=== PATIENT | male | born 1955 | race Caucasian/White ===

== ENCOUNTER 2019-11-28 12:30 | Emergency (ER) | payer OTHER ==
[2019-11-28] MEDS ORDERED: Bacitracin Oint 1 GM U/D Packet TOP ONE (13:21)
[2019-11-28] MEDS ORDERED: Diphtheria,Pertussis(Acell),Tetanus Vaccine 0.5 ML SDV IM ONE (13:21)
--- NOTE | 2019-11-28 13:28 | EDM.PDOC ---
ED HPI GENERAL MEDICAL PROBLEM - General Chief Complaint: Upper Extremity Injury/Pain Stated Complaint: LACERATION RIGHT HAND BASE OF THUMB Time Seen by Provider: 11/28/19 13:15 Source of Information: Reports: Patient History Limitations: Reports: No Limitations - History of Present Illness INITIAL COMMENTS - FREE TEXT/NARRATIVE: 64-year-old male with a laceration to his right hand. The wench handle on his pontoon snapped back and caught his hand and cut the hand between the thumb and first finger on the palmar side. No other injury. Onset: Sudden Duration: Hour(s): (1 hour ago) Location: Reports: Upper Extremity, Right Associated Symptoms: Reports: No Other Symptoms Right Hand Pain Score (Numeric/FACES): 0 - Related Data Allergies Allergy/AdvReac Type Severity Reaction Status Date / Time No Known Allergies Allergy Verified 11/28/19 13:10 Home Meds: Home Meds NK [No Known Home Meds] 11/28/19 [History] Past Medical History - Past Surgical History GI Surgical History: Reports: Hernia, Inguinal Social & Family History - Tobacco Use Smoking Status *Q: Never Smoker - Caffeine Use Caffeine Use: Reports: Coffee - Recreational Drug Use Recreational Drug Use: No Review of Systems - Review of Systems Review Of Systems: See Below Respiratory: Reports: No Symptoms. Denies: Shortness of Breath Cardiovascular: Reports: No Symptoms Skin: Reports: Other (Laceration of the right hand) Neurological: Denies: Paresthesia (No numbness of the digits of the right hand) ED EXAM, GENERAL - Physical Exam Exam: See Below Exam Limited By: No Limitations General Appearance: Alert, No Apparent Distress Head: Atraumatic Respiratory/Chest: No Respiratory Distress Cardiovascular: Regular Rate, Rhythm Extremities: Other (Exam is otherwise limited to the right hand. The patient has a 5 cm angled flap laceration through the thenar area of the right palm into the webspace between the thumb and second digit. It is fairly deep into the subcutaneous tissues, but no major vessels or nerves are involved. He has full range of motion and normal sensation) Course - Vital Signs Last Recorded V/S: Last Vital Signs Temp 97.4 F 11/28/19 13:08 Pulse 62 11/28/19 13:08 Resp 14 11/28/19 13:08 BP 172/95 H 11/28/19 13:08 Pulse Ox 95 11/28/19 13:08 - Orders/Labs/Meds Orders: Active Orders 24 hr Category Date Time Status Vaccines to be Administered [RC] PER UNIT ROUTINE Care 11/28/19 13:22 Active Meds: Medications Discontinued Medications Generic Name Dose Route Start Last Admin Trade Name Maryuri PRN Reason Stop Dose Admin Bacitracin 1 dose 11/28/19 13:21 11/28/19 13:28 Bacitracin Oint 1 Gm TOP 11/28/19 13:22 1 dose ONETIME ONE Administration Diphtheria/Tetanus/Acell Pertussis 0.5 ml 11/28/19 13:21 11/28/19 13:29 Adacel IM 11/28/19 13:22 0.5 ml .ONCE ONE Administration Lidocaine HCl 5 ml 11/28/19 13:21 11/28/19 13:29 Xylocaine-Mpf 1% INJECT 11/28/19 13:22 5 ml ONETIME ONE Administration - Re-Assessments/Exams Free Text/Narrative Re-Assessment/Exam: 11/28/19 14:25 The laceration was infiltrated with 1% lidocaine, cleansed thoroughly with saline and then closed with seven 4-0 Ethilon sutures. Topical bacitracin and a Band-Aid was applied. It was a very dirty wound, so he was placed on cephalexin 500 mg 3 times a day for 7 days. Sutures can be removed in 9 days. He was also given a Tdap booster. Departure - Departure Time of Disposition: 14:04 Disposition: Home, Self-Care 01 Clinical Impression: Laceration of right hand Qualifiers: Encounter type: initial encounter Foreign body presence: without foreign body Qualified Code(s): S61.411A - Laceration without foreign body of right hand, initial encounter - Discharge Information Instructions: Laceration Care, Adult Referrals: PCP,None [Primary Care Provider] - Forms: ED Department Discharge Care Plan Goals: Keep wound covered and clean while healing. Take antibiotic 3 times a day until gone, and sutures should be ready for removal next Monday in 9 days. Recheck sooner if concerns of infection or not healing satisfactorily. Sepsis Event Note - Evaluation Sepsis Screening Result: No Definite Risk - Focused Exam Vital Signs: Vital Signs Temp Pulse Resp BP Pulse Ox 11/28/19 13:08 97.4 F 62 14 172/95 H 95 Date Exam was Performed: 11/28/19 Time Exam was Performed: 14:22 - My Orders Last 24 Hours: My Active Orders 11/28/19 13:22 Vaccines to be Administered [RC] PER UNIT ROUTINE - Assessment/Plan Last 24 Hours: My Active Orders 11/28/19 13:22 Vaccines to be Administered [RC] PER UNIT ROUTINE
== END 2019-11-28 14:15 | disposition home or self-care (01) ==
LOC: JP.ED 12:30
DX: S61.411A Laceration without foreign body of right hand, initial encounter (principal); Z23 Encounter for immunization; W26.8XXA Contact with other sharp object(s), not elsewhere classified, initial encounter
CPT/HCPCS: 12002; 90471; 90715; 99282; J2001

== ENCOUNTER 2025-03-06 20:24 | Emergency (ER) | payer MEDICARE, BC ==
[2025-03-06] MEDS: Lidocaine 1% with EPINEPHrine 1:100,000 20 ML MDV ONE (21:41)
[2025-03-06] MEDS: Lidocaine 1% with EPINEPHrine 1:100,000 20 ML MDV INJECT ONE (21:41)
[2025-03-06] MEDS: Diphtheria,Pertussis(Acell),Tetanus Vaccine 0.5 ML Syringe IM ONE (21:53)
[2025-03-06] MEDS: Bacitracin Oint 1 GM U/D Packet TOP ONE (21:54)
== END 2025-03-06 21:57 | disposition home or self-care (01) ==
LOC: JP.ED 20:24
DX: S51.812A Laceration without foreign body of left forearm, initial encounter (principal); Z23 Encounter for immunization; W26.8XXA Contact with other sharp object(s), not elsewhere classified, initial encounter; Y93.89 Activity, other specified
CPT/HCPCS: 12034; 90471; 90715; 99282; J2004; 12004; 99283